=== PATIENT | male | born 1990 | race African-American/Black ===

== ENCOUNTER 2023-08-18 10:44 | Day surgery (SDC) | payer OTHER, SELFPAY ==
[2023-08-17 11:40] VITALS: BMI 24.8
[2023-08-18 11:26] VITALS: BMI 24.8
[2023-08-18] MEDS: LACTATED RINGERS 1,000 ML 42 ML IV ×2 (12:06→13:46)
[2023-08-18] MEDS: ACETAMINOPHEN 325 MG TABLET 975 MG PO (12:07)
--- NOTE | 2023-08-18 12:26 | PM.HP.1 ---
History of Present Illness History of Present Illness Date Patient Seen: 08/18/23 Time Patient Seen: 12:27 Date of Onset of Symptoms: 08/18/23 Chief complaint: Right Knee Arthroscopy Narrative: This is a pleasant 32-year-old male with a chronic right ACL insufficiency who has not been able to tolerate conservative management and would like to go forward with ACL reconstruction. He was previously seen by myself in clinic. Has not had any changes in his symptoms since I last saw him. No recent nausea, vomiting, diarrhea, fevers, chills or any other constitutional symptoms. No other complaints at this time. FOR[facility], [facility] Social History household members: family Smoking Status: Never smoker alcohol intake: current Meds Home Medications and Allergies Home Medications Medication Instructions Recorded Confirmed Type No Known Home Medications 08/17/23 08/17/23 History Allergies Allergy/AdvReac Type Severity Reaction Status Date / Time No Known Drug Allergies Allergy Verified 08/18/23 11:47 Review of Systems Review of Systems ROS: Yes All systems reviewed with the patient and are negative except as otherwise documented Exam Narrative Exam Narrative: HEENT: Head atraumatic eyes anicteric moist mucous membranes Cardiovascular: Palpable peripheral pulses extremities are warm and well perfused Respiratory: Breathing comfortably on room air Psychiatric: Appropriate mood and affect Neuro: No acute deficits Musculoskeletal: Exam of the right lower extremity demonstrates 2B Mercedez's, positive pivot. Sensation intact to light touch from L2 through S2. 2+ dorsalis pedis pulse with brisk capillary refill less than 2 seconds Assessment & Plan Assessment & Plan narrative: Assessment: Right knee ACL insufficiency Plan: ACL reconstruction with quadriceps autograft possible meniscus repair. Risks and benefits of surgery were discussed again including the risk of infection, damage to internal structures, bleeding, nerve injury, instability, need for revision surgery, blood clots, anesthesia and . No guarantees were made regarding outcomes. Patient expressed understanding and accepted these risks and wished to go forward with surgery and consent was signed.
[2023-08-18] MEDS: TRANEXAMIC ACID 1,000 MG VIAL 1000 MG INJ (13:20)
--- NOTE | 2023-08-18 13:44 | SUR.OPER ---
Supine on padded OR bed, head on pillow, arms secured on padded arm boards at <90 degrees abduction, legs uncrossed, safety belt at waist, tape over blanket over lower left leg, right leg draped free with nathe positionr ant foot and hip managed security sales consultant at upper thigh.
[2023-08-18] MEDS: BUPIVACAINE 0.25% (PF) 30 ML, EPINEPHrine 0.15 MG INJ (13:48)
[2023-08-18 15:10] VITALS: BP 108/61; PULSE 76; RESP 11; O2SAT 95
[2023-08-18 15:15] VITALS: BP 108/61; PULSE 75; RESP 12; O2SAT 95
[2023-08-18 15:25] VITALS: BP 153/88; PULSE 100; RESP 15; O2SAT 98
[2023-08-18 15:29] VITALS: BP 137/84; PULSE 99; RESP 12; O2SAT 98
[2023-08-18 15:45] VITALS: BP 154/87; PULSE 65; RESP 16; O2SAT 97
--- NOTE | 2023-08-18 17:10 | PM.OP.1 ---
Operative Date/Time/Diagnoses Date of procedure: 08/18/23 Time of procedure: 17:10 Pre-op diagnosis: Right ACL rupture, chronic Post-op diagnosis: same Procedure & Clinicians Procedure: Right ACL reconstruction with quadriceps autograft Same procedure as scheduled: Yes Indications: Indications: This is a 32-year-old male with a chronic ACL rupture right knee. We discussed that some people are able to cope with an ACL however performing pivoting and cutting motions is difficult without 1. He currently does not tolerate the instability in his knee and would like to go forward with surgery. Surgeon: Jesus Olsen [employer] [facility] Drivers: Kiersten Del Toro Click Yes if Unassisted: No Anesthesia Type: General Operative Notes Findings: Findings: Exam under anesthesia: 2B Mercedez's with positive anterior drawer and positive visit shift Patellofemoral joint: Grade 3 chondromalacia throughout trochlea Medial and lateral gutters: No loose bodies noted Medial compartment: Intact although notably smaller width then I would expect and medial tibial plateau with normal cartilage, medial femoral condyle also with normal cartilage Intercondylar notch: Intact PCL, incompetent ACL with empty lateral wall sign Lateral compartment: Lateral meniscus intact, lateral tibial plateau with normal cartilage, lateral femoral condyle also was normal cartilage Closure Type: primary Specimen(s): none sent Prosthetic devices, grafts, tissues, transplants, or devices: SwiveLock x1, FiberLink button x2, button canceling machine operator x1 fiber tape x1 Estimated Blood Loss (mL): 50 Blood products transfused: none Tourniquet time (min): 55 Procedure in detail: Description of operation: Patient was identified in the preoperative area. The correct right knee was marked with my initials. The patient was then brought into the operating room. A surgical pause was confirmed in the correct site of surgery was again identified. The patient was given perioperative IV antibiotics followed by induction of general anesthesia. A tourniquet was applied to the upper thigh. The lower extremity was then prepped and draped in a standard sterile fashion. After exam under anesthesia revealed an ACL insufficiency, the decision was made to proceed with ACL reconstruction. The leg was exsanguinated with an Esmarch bandage and the tourniquet was inflated to 250 mm hg. A longitudinal incision was made over the quad tendon, about 2-1/2 cm starting at the proximal pole of the patella. The quadriceps tendon was elevated off of the patella, and a FiberLoop was used to tag the end of the tendon. This was then placed through a a size 9 quad pro harvester. This was used to obtain a 70 mm graft. The tendon was noted to be partial thickness, and thus quad tendon repair was not necessary. This was taken to the back table and prepared. A separate anterolateral portal was made. An anterior medial portal was also made outside in. Synovectomy of multiple compartments was performed including the fat pad into the lateral medial and patellofemoral compartment to allow for full extension and visualization. There was a complete tear of the functional fibers of the anterior cruciate ligament. The remnant of the ligament was debrided. No notchplasty was necessary. Femoral flip cutting guide was then placed through the lateral portal. Once appropriate position was determined, this was drilled, flipped and back drilled to a tunnel length of about 35 mm. A passing suture was then passed using the fiber stick. Next, the tibial insertion point was identified, and a tibial guide was used with a branch lead. A small incision was made medial to the tibial tubercle. This was used in a similar fashion and a 40 mm tunnel was obtained. Tunnel edges were cleared off. Passing sutures were placed through both tunnels. The graft was then passed, and the femoral tunnel was pulled up to about 20 mm leaving 20 mm in the tibial tunnel. The arthroscope was removed, the leg was placed into extension and the tibial side was then tensioned. Final tightening was done on the femoral side. The arthroscope was reinserted and it was noted that there was no impingement of the graft on the femoral notch and the graft had good tension. Arthroscope was then removed and a Mercedez's test demonstrated good tension with firm endpoint, and no pivot. Fiber tapes accompanying the graft were then placed into a separate SwiveLock just distal to the tibial tunnel for an internal brace. Assisting participation: This operation could not have been safely performed (without compromising the technical results or length of the procedure) without the assistance of a skilled rn neurosurgical. The rn neurosurgical was medically necessary for proper positioning, retraction and manipulation of instruments, proper exposure, graft prep, and manipulation of tissue. Complications: none Post-operative Condition: stable Disposition: PACU Plan for aftercare: Postop: Brace to bear remain locked for 2 days and extension, and then unlocked. He will remain on total of 4 weeks. Dressings may come off after 3 days to shower. Ensure that the incision sites are completely dry before replacing new dressings for 2 more days. Five days from surgery, dressings may come off completely and remain open to the air to dry. Crutches as necessary for balance for the 1st 2 weeks.
== END 2023-08-18 16:43 | disposition home or self-care (01) ==
PROVIDERS: Referring Provider Orthopaedic Surgery; Visit Provider Orthopaedic Surgery
PROC: (CPT 29888; principal; 2023-08-18 12:15)
DX: S83.511A Sprain of anterior cruciate ligament of right knee, initial encounter (principal); M94.261 Chondromalacia, right knee; X58.XXXA Exposure to other specified factors, initial encounter
CPT/HCPCS: 29888; C1713; J0171; J1100; J1170; J1885; J2405; J2704; J3010